=== PATIENT | female | born 1980 | race Caucasian/White ===

== ENCOUNTER 2017-04-04 09:59 | Emergency (ER) | payer SELFPAY ==
[2017-04-04 14:50] VITALS: BP 125/58
--- NOTE | 2017-04-04 15:48 | Diagnostic Imaging Report ---
[facility] [address] [facility] [address] Report Submission Date: Apr 04, 2017 10:57:48 AM CDT Patient Study Name: JOANNA LOPEZ Date: Apr 04, 2017 10:41:46 AM CDT Modality Type: CR Gender: F Description: LOWER EXTREMITY : 80 Institution: [facility] Physician JAYRO COTTON - ER Right knee -three views CLINICAL HISTORY: Pain and swelling. FINDINGS: Examination right knee in AP, lateral and sunrise views fails to demonstrate evidence of fracture, dislocation or other bone or joint pathology. Electronically signed on Apr 04, 2017 10:57:48 AM CDT by: Estiven CONTI
--- NOTE | 2017-04-04 16:16 | ED Physician Documentation ---
Lower Extremity Problem - HISTORIAN Historian: patient - HPI Stated Complaint: right knee pain Chief Complaint: Lower Extremity Problem Additional Information: rt knee locked up sev days ago better but stiff and sore-slight swelling. Location of Injury: R knee Timing: still present, better Duration: intermittent episodes Recent Injury: No Severity: moderate Quality: pain, swelling, tenderness Exacerbated By: walking, other (standing) Relieved By: rest, other (otc meds very slightly) Associated Symptoms: denies: chest pain - ROS CONST: no problems GI/: none EYES/ENT: none NERUO/PSYCH: difficulty walking. denies: headache - PAST HX Past History: none Surgeries/Procedures: other (hip age 6months) Allergies/Adverse Reactions: Allergies Allergy/AdvReac Type Severity Reaction Status Date / Time acetaminophen [From Percocet] Allergy Mild Weakness Verified 04/04/17 10:26 oxycodone HCl [From Percocet] Allergy Mild Weakness Verified 04/04/17 10:26 Home Medications: Ambulatory Orders Medication Instructions Recorded NK [NK] 02/12/15 - SOCIAL HX Smoking History: less than 1 pack/day Alcohol Use: none Drug Use: none - FAMILY HX Family History: no significant history - VITAL SIGNS Vital Signs: Vital Signs Temp Pulse Resp BP Pulse Ox 98.1 F 78 20 125/58 99 04/04/17 09:59 04/04/17 11:48 04/04/17 11:48 04/04/17 11:48 04/04/17 11:48 - REVIEWED ASSESSMENTS Nursing Assessment Reviewed: Yes Vitals Reviewed: Yes ED Results Lab/Radiology - Radiology Radiology Impressions: no fx seen - Orders Orders: ED Orders Category Date Time Status Knee Immobilizer 1T Care 04/04/17 11:18 Active XR KNEE 3 VIEWS [KNEE 3 VIEWS] [RAD] Stat Exams 04/04/17 Completed Lower Extremity Problem - EXAM General Appearance: mild distress Neuro/Tendon: normal sensation (slight swelling and subj tenderness w/palpation) RESPIRATORY: no resp distress, chest non-tender, breath sounds normal CVS: reg rate & rhythm, heart sounds normal JOINT: effusion (possd vewry slight) VASCULAR: no vascular compromise NEURO/PSYCH: oriented X3, motor nml, sensation nml, mood/affect nml SKIN: warm/dry, normal color. No: cyanosis, diaphoresis, jaundice Discharge Clincal Impression: rt knee sprain Referrals: Yolanda Gentile MD [Primary Care Provider] - 2 Days Home Medications: Ambulatory Orders NK [NK] 02/12/15 Comments: avoid standing-home for few days before rtw Condition: Good Disposition: 01 HOME, SELF-CARE Decision to Admit: NO Decision Time: 16:16
== END 2017-04-04 11:56 | disposition home or self-care (01) ==
LOC: ED 09:59
DX: S83.91XA Sprain of unspecified site of right knee, initial encounter (principal); W19.XXXA Unspecified fall, initial encounter; Y93.9 Activity, unspecified; Y99.9 Unspecified external cause status
CPT/HCPCS: 73562; L1830; 99283

== ENCOUNTER 2017-12-17 10:53 | Outpatient (CLI) | payer SELFPAY | END 2017-12-17 10:54 | LOC: LABRHC 10:53 | PROVIDERS: ATTEND Physician Assistant | DX: R30.0 Dysuria (principal) | CPT/HCPCS: 87086 ==

== ENCOUNTER 2018-01-08 10:19 | Outpatient (CLI) | payer SELFPAY ==
--- NOTE | 2018-01-08 18:17 | Diagnostic Imaging Report ---
THEODORE SALAMANCA [facility] [address] [facility] [address] [address] Report Submission Date: Jan 08, 2018 10:51:16 AM CDT Patient Study Name: JOANNA LOPEZ Date: Jan 08, 2018 10:30:07 AM CDT Modality Type: DX Gender: F Description: LOWER EXTREMITY : 80 Institution: [facility] Physician: THEODORE SALAMANCA left Ankle, 3 views. History: PATIENT STATES SHES EXPERIENCING LEFT ANKLE PAIN AND BURNING SENSATION X 3 WEEKS NO PREVIOUS INJURIES OR SURGERIES Findings: The osseous structures are intact without acute fracture. The joint space and alignment are normal. There is no soft tissue swelling. Impression: 1. No acute osseous abnormality. Electronically signed on Jan 08, 2018 10:51:16 AM CDT by: Bennie CONTI
== END 2018-01-08 10:25 ==
LOC: RAD 10:19
PROVIDERS: ATTEND Physician Assistant
DX: M25.572 Pain in left ankle and joints of left foot (principal)
CPT/HCPCS: 73610

== ENCOUNTER 2018-02-16 20:53 | Emergency (ER) | payer SELFPAY ==
--- NOTE | 2018-02-16 21:19 | ED Physician Documentation ---
Lower Extremity Problem - HISTORIAN Historian: patient ( ) - HPI Chief Complaint: Lower Extremity Problem Additional Information: pt told had hairline fx lt ankle 8 weeks ago. has worn walking boot now weaning off boot w/increase pain. xray report was no fx Location of Injury: L ankle Onset: days ago (few days ago) Timing: worse (w/o boot) Severity: mild, moderate (not using cane or crutch) Quality: pain, tenderness. denies: swelling, numbness, tingling Exacerbated By: walking Relieved By: rest (and wearing walking boot) - ROS CONST: no problems MS/SKIN/LYMPH: none CVS/RESP: none GI/: none NERUO/PSYCH: difficulty walking - PAST HX Past History: other (possible dedpression on celexa) Allergies/Adverse Reactions: Allergies Allergy/AdvReac Type Severity Reaction Status Date / Time oxycodone HCl [From Percocet] Allergy Mild Weakness Verified 02/16/18 21:48 - SOCIAL HX Smoking History: greater than 1 pack/day Alcohol Use: none Drug Use: none - FAMILY HX Family History: no significant history - VITAL SIGNS Vital Signs: Vital Signs Temp Pulse Resp BP Pulse Ox 98.2 F 57 L 19 123/44 98 02/16/18 20:53 02/16/18 20:53 02/16/18 20:53 02/16/18 20:53 02/16/18 20:53 - REVIEWED ASSESSMENTS Nursing Assessment Reviewed: Yes Vitals Reviewed: Yes ED Results Lab/Radiology - Lab Results Lab Results: no fracture seen - Orders Orders: ED Orders Category Date Time Status ANKLE 3 VIEWS OR MORE [RAD] Stat Exams 02/16/18 Ordered Lower Extremity Problem - EXAM General Appearance: mild distress (lt ankle lat mallelous) Neuro/Tendon: normal sensation, normal motor functions, normal tendon functions EENT: eye inspection normal RESPIRATORY: no resp distress, chest non-tender, breath sounds normal CVS: reg rate & rhythm, heart sounds normal JOINT: No: nml ROM (pain w/rom lt ankle lat mallelolus) NEURO/PSYCH: oriented X3, motor nml, sensation nml, mood/affect nml SKIN: warm/dry, normal color. No: cyanosis BACK: normal inspection Discharge Clincal Impression: ankle sprain s/p hx fx Referrals: Yolanda Gentile MD [Primary Care Provider] - 2 Days Comments: walk w.cane crutch Condition: Good Disposition: 01 HOME, SELF-CARE Decision to Admit: NO Decision Time: 21:56
[2018-02-16 21:44] VITALS: BP 123/44
--- NOTE | 2018-02-17 07:00 | Diagnostic Imaging Report ---
JAYRO COTTON [facility] [address] [facility].[address] [address] Report Submission Date: Feb 16, 2018 9:38:27 PM CDT Patient Study Name: JOANNA LOPEZ Date: Feb 16, 2018 9:17:42 PM CDT Modality Type: DX Gender: F Description: LOWER EXTREMITY : 80 Institution: [facility] Physician: JAYRO COTTON Left ankle 3-view History: Pain and swelling Findings: A small heel spur is present. The left ankle is intact without fracture, dislocation, arthropathy, or focal bone lesion. Impression: Heel spur. No fracture. Electronically signed on Feb 16, 2018 9:38:27 PM CDT by: Babak CONTI
== END 2018-02-16 21:58 | disposition home or self-care (01) ==
LOC: ED 20:53
DX: M25.572 Pain in left ankle and joints of left foot (principal)
CPT/HCPCS: 73610; 99282

== ENCOUNTER 2018-03-17 20:13 | Emergency (ER) | payer SELFPAY ==
[2018-03-17 20:39] VITALS: BP 124/53
--- NOTE | 2018-03-17 21:18 | ED Physician Documentation ---
Low Back Pain - HISTORIAN Historian: patient - HPI Stated Complaint: Back Pain x 3 Days Chief Complaint: Low Back Pain/ Injury History: back pain Onset: days ago (3) Duration: continues in ED Recent Injury: No Context: denies: lifting, turning, bending, fall, near-fall, trauma Severity: moderate Further Comments: yes (38 year old female patient presents with complaint of low back pain; denies injury or heavy lifting. Denies loss or bowel or bladder. States she took tylenol today with no relief.) - ROS CONST: no problems CVS/RESP: none EYES/ENT: none MS/SKIN/LYMPH: none Neuro/Psych: none GI/: denies: abdominal pain, black stools - PAST HX Past History: other (depression) Allergies/Adverse Reactions: Allergies Allergy/AdvReac Type Severity Reaction Status Date / Time oxycodone HCl [From Percocet] Allergy Mild Weakness Verified 02/16/18 21:48 Home Medications: Ambulatory Orders Medication Instructions Recorded Ketorolac Tromethamine [Toradol] 10 mg PO TID #9 tablet 03/17/18 Sertraline HCl [Sertraline HCl] 50 mg PO DAILY 03/17/18 - SOCIAL HX Smoking History: cigarettes - FAMILY HX Family History: denies: none - VITAL SIGNS Vital Signs: Vital Signs Temp Pulse Resp BP Pulse Ox 97.3 F L 74 18 124/53 98 03/17/18 21:32 03/17/18 21:32 03/17/18 21:32 03/17/18 21:32 03/17/18 21:32 - REVIEWED ASSESSMENTS Nursing Assessment Reviewed: Yes Vitals Reviewed: Yes ED Results Lab/Radiology - Orders Orders: ED Orders Category Date Time Status Ketorolac Tromethamine [Toradol] Med 03/17/18 21:15 Discontinued 30 mg IVP NOW ONE Ketorolac Tromethamine [Toradol] Med 03/17/18 21:19 Discontinued 60 mg .ROUTE .STK-MED ONE Ketorolac Tromethamine [Toradol] Med 03/17/18 21:19 Discontinued 60 mg IM NOW ONE Orphenadrine Citrate [Norflex] Med 03/17/18 21:15 Discontinued 60 mg IM NOW ONE Low Back Pain/Injury - Physical Exam General Appearance: mild distress EENT: eye inspection normal, PRATIMA Resp/CVS: chest non-tender, breath sounds nml, heart sounds nml, no resp. distress, lungs clear, reg. rate & rhythm Abdomen: non-tender, no organomegaly, no pulsatile mass Back: non-tender, other (no midline lumbar tenderness noted; no CVA tenderness; tenderness in bilateral lumbar paraspinous muscles. ). No: vertebral point- tendernes, CVA tenderness Straight Leg Raising: Negative Left, Negative Right Neuro/Psych: oriented x3, motor nml, sensation nml, bilat. doriflexion nml, reflexes nml, mood/affect nml Skin: normal color, warm/dry, NR, INT, PAL, DR Extremities: non-tender, normal range of motion, no evidence of injury, no edema , J, REGISTERED DENTAL ASSISTANT RDA Discharge Clincal Impression: Low back pain Qualifiers: Chronicity: acute Back pain laterality: bilateral Sciatica presence: without sciatica Qualified Code(s): M54.5 - Low back pain Prescriptions: Ketorolac Tromethamine [Toradol] 10 mg PO TID #9 tablet Referrals: Yolanda Gentile MD [Primary Care Provider] - 2 Days Additional Instructions: Ice Rest Elevation If you are unable to bear weight and continuing to have significant pain on day 3-4; see your PCP for re-evaluation and additional xrays. You may use Tylenol every 4hour as needed for pain. Limit your dose to less than 4 G per day. You may want to try massage, over the counter lidocaine patches, biofreeze, rosendo rodgers or aspercream . Condition: Stable Disposition: 01 HOME, SELF-CARE Decision to Admit: NO Decision Time: 21:18
[2018-03-17] MEDS: KETOROLAC TROMETHAMINE 60 MG/2 ML VIAL IM ONE (21:24)
[2018-03-17] MEDS: ORPHENADRINE CITRATE 60 MG/2ML IM ONE (21:24)
[2018-03-17] MEDS: KETOROLAC TROMETHAMINE 30 MG/1ML VIAL IVP ONE (21:25)
[2018-03-17] MEDS: KETOROLAC TROMETHAMINE 60 MG/2 ML VIAL ONE (21:25)
== END 2018-03-17 21:32 | disposition home or self-care (01) ==
LOC: ED 20:13
DX: M54.5 Low back pain (principal)
CPT/HCPCS: J1885; J2360; 96372; 99284

== ENCOUNTER 2018-08-07 19:27 | Emergency (ER) | payer SELFPAY ==
--- NOTE | 2018-08-07 20:21 | ED Physician Documentation ---
General Adult - HISTORIAN Historian: patient - HPI Stated Complaint: Right side upper chest/shoulder pain Chief Complaint: Chest Pain Onset: days ago (7) Timing: still present, worse Severity: moderate Further Comments: yes (She reports chest pain after being treated for bronchitis last week and she did feel better and then yesterday she notes that she started to have increased cough, congestion and fatigue. Today at work chest pain on right side from the cough. She states that she has no nausea or diaphoresis. No fever. She did compelte antibitoics and steriods.) Last known Well Code/Unknown Code: Unknown - ROS CONST: recent illness - PAST HX Past History: other (depression ) Immunizations: UTD Allergies/Adverse Reactions: Allergies Allergy/AdvReac Type Severity Reaction Status Date / Time oxycodone HCl [From Percocet] Allergy Mild Fainting Verified 08/07/18 19:55 - SOCIAL HX Smoking History: quit less than 1 year Alcohol Use: none Drug Use: none - FAMILY HX Family History: No - VITAL SIGNS Vital Signs: Vital Signs Temp Pulse Resp BP Pulse Ox 98.4 F 70 18 119/56 97 08/07/18 19:30 08/07/18 19:30 08/07/18 19:30 08/07/18 19:30 08/07/18 19:30 - REVIEWED ASSESSMENTS Nursing Assessment Reviewed: Yes Vitals Reviewed: Yes Progress - Progress Progress: 2129: States she feels her chest congestion is breaking up. Pain is improved DG 2229: Feeling improved per her report. She is agreeable to plan DG ED Results Lab/Radiology - Radiology Radiology Impressions: Chest two views History: Cough and right upper chest pain. Quit smoking 3 weeks ago Findings: The lungs are hyperinflated without acute infiltrate or pleural effusion. Heart size and pulmonary vascularity are normal. Osseous structures are intact. Impression: Hyperinflation. This does not exclude bronchitis. Electronically signed on Aug 07, 2018 9:07:44 PM CDT by: Babak Dave - Orders Orders: ED Orders Category Date Time Status Continuous EKG monitoring Q30M Care 08/07/18 20:16 Active Continuous Pulse Oximetry Q30M Care 08/07/18 20:[address] IV Lock 1T Care 08/07/18 20:16 Active CHEST 2VIEW [RAD] Stat Exams 08/07/18 20:16 Ordered BNP [NT-proBNP] Stat Lab 08/07/18 Ordered CBC/PLATELET/DIFF Routine Lab 08/07/18 20:16 Ordered CMP Routine Lab 08/07/18 20:16 Ordered D DIMER Stat Lab 08/07/18 Ordered UA W/MICRO IF INDICATED Routine Lab 08/07/18 20:19 Ordered EKG WITH COMPARISON Stat Ther 08/07/18 20:16 Ordered General Adult Physical Exam - PHYSICAL EXAM GENERAL APPEARANCE: no distress EENT: eye inspection normal, ENT inspection normal, pharynx normal, no signs of dehydration NECK: normal inspection RESPIRATORY: wheezes, rhonchi, other (chest on right side is tender to touch ) CVS: reg rate & rhythm, heart sounds normal, equal pulses, no murmur ABDOMEN: soft, no distension BACK: normal inspection, no CVA tenderness SKIN: warm/dry, normal color EXTREMITIES: non-tender, normal range of motion, no evidence of injury, no edema NEURO: oriented X3, CN's nml as tested, motor nml, sensation nml, mood/affect nml, cognition normal Discharge Clincal Impression: Bronchitis Referrals: Yolanda Gentile MD [Primary Care Provider] - 2 Days Additional Instructions: 1. Medrol dose pack as directed start 08.08.2018 at noon 2. ProAir 90 mcg take 1 puff every 4 hours as needed for cough 3. increase fluids 4. Tylenol or Ibuprofen as directed for pain 5. Follow up with PCP in 2-4 days 6. Return to ER for concerns Condition: Stable Disposition: 01 HOME, SELF-CARE Decision to Admit: NO Date of Decison to Admit: 08/07/18 Decision Time: 22:38
[2018-08-07 20:29] LABS: MEAN CORPUSCULAR HEMOGLOBIN 29.2 pg (28.0-34.0)
[2018-08-07 20:30] LABS: BASOPHILS % 0.7 (0.0-1.5); EOSINOPHILS % 1.9 % (0.0-6.8); MONOCYTES % 7.1 % (0.0-11.0); NEUTROPHILS # 6.4 # k/uL (1.4-7.7)
[2018-08-07 20:49] LABS: eGFR (Non-African) > 60
[2018-08-07] MEDS ORDERED: LEVALBUTEROL HCL 1.25 MG/3 ML AMPUL.NEB NEB ONE (20:59)
[2018-08-07] MEDS ORDERED: methylPREDNISolone SOD SUCC 125 MG/2 ML VIAL IVP ONE (21:10)
--- NOTE | 2018-08-07 21:53 | Diagnostic Imaging Report ---
NAHOMY EMMANUEL [facility] [address] [facility] [address], [place]. [address] Report Submission Date: Aug 07, 2018 9:07:44 PM CDT Patient Study Name: JOANNA LOPEZ Date: Aug 07, 2018 8:34:20 PM CDT Modality Type: DX Gender: F Description: CHEST : 80 Institution: [facility] Physician: NAHOMY EMMANUEL Chest two views History: Cough and right upper chest pain. Quit smoking 3 weeks ago Findings: The lungs are hyperinflated without acute infiltrate or pleural effusion. Heart size and pulmonary vascularity are normal. Osseous structures are intact. Impression: Hyperinflation. This does not exclude bronchitis. Electronically signed on Aug 07, 2018 9:07:44 PM CDT by: Babak CONTI
[2018-08-07] MEDS ORDERED: IPRATROPIUM/ALBUTEROL SULFATE 3 ML AMPUL.NEB NEB ONE (22:23)
[2018-08-07 23:03] VITALS: BP 129/61
[2018-08-08 10:48] LABS: APPEARANCE,URINE CLEAR (CLEAR); COLOR,URINE YELLOW (YELLOW); OCCULT BLOOD,URINE NEGATIVE (NEGATIVE); PH URINE 5.5 (5.0 - 8.0); URINE HCG NEGATIVE (NEGATIVE); UROBILINOGEN URINE 0.2 Eu (0.2-1.0)
== END 2018-08-07 23:00 | disposition home or self-care (01) ==
LOC: ED 19:27
DX: J40 Bronchitis, not specified as acute or chronic (principal); R07.9 Chest pain, unspecified
CPT/HCPCS: 71046; 80053; 81002; 81025; 83880; 85025; 85379; 87086; 93005; J2930; J7614; 94640; 96374; 99284; S1016

== ENCOUNTER 2018-10-24 20:36 | Emergency (ER) | payer SELFPAY ==
--- NOTE | 2018-10-24 20:46 | ED Physician Documentation ---
General Adult - HISTORIAN Historian: patient - HPI Stated Complaint: right shoulder pain x 2 days no injury Chief Complaint: Shoulder Injury/ Pain Onset: days ago (2) Timing: still present Severity: mild Further Comments: yes (She denies any injury she has right shoulder pain x 2 days. She has no decreased rom although pain to top of shoulder that is dull and sharp at times. She can move her arm but it hurts when she lifts her arm. She has no loss of sensation. She denies any injury. She states at work she lifts boxes above her head a lot and this is hard and painful) - ROS CONST: no problems - PAST HX Past History: none Other History: none Immunizations: UTD Allergies/Adverse Reactions: Allergies Allergy/AdvReac Type Severity Reaction Status Date / Time oxycodone HCl [From Percocet] Allergy Mild Fainting Verified 10/24/18 20:56 - SOCIAL HX Smoking History: non-smoker Alcohol Use: none Drug Use: none - FAMILY HX Family History: No - VITAL SIGNS Vital Signs: Vital Signs Temp Pulse Resp BP Pulse Ox 129/61 08/07/18 23:00 - REVIEWED ASSESSMENTS Nursing Assessment Reviewed: Yes Vitals Reviewed: Yes Progress - Progress Progress: 2159: Discussed results and plan. She is agreeable DG ED Results Lab/Radiology - Radiology Radiology Impressions: HISTORY: 38-year-old female with right shoulder pain for 2 days, no known injury. COMPARISON: None available. TECHNIQUE: 3 views of the right shoulder were performed. FINDINGS: No acute fracture or dislocation about the right shoulder. No significant degenerative changes or loss of subacromial space. IMPRESSION: Unremarkable radiographs of the right shoulder. Electronically signed on Oct 24, 2018 9:59:09 PM ASSAYER HELPER by: Josep Morejon General Adult Physical Exam - PHYSICAL EXAM GENERAL APPEARANCE: no distress EENT: eye inspection normal, no signs of dehydration NECK: normal inspection RESPIRATORY: no resp distress, chest non-tender, breath sounds normal CVS: reg rate & rhythm, heart sounds normal, no murmur ABDOMEN: soft BACK: normal inspection SKIN: warm/dry, normal color EXTREMITIES: non-tender, normal range of motion, other (decreased ROM on right shoulder. Pulses + , Sensation + , No obvious injury, Cap refill +) NEURO: oriented X3 Discharge Clincal Impression: Right shoulder pain Qualifiers: Chronicity: acute Qualified Code(s): M25.511 - Pain in right shoulder Referrals: Yolanda Gentile MD [STAFF PHYSICIAN] - 2 Days Comments: 1. OTC meds as directed for pain 2. Ice or heat for comfort 3. Follow up with PCP in 2-4 days 4. Return to ER for any concerns Condition: Stable Disposition: 01 HOME, SELF-CARE Decision to Admit: NO Date of Decison to Admit: 10/24/18 Decision Time: 22:00
[2018-10-24 20:57] VITALS: BP 140/63
--- NOTE | 2018-10-25 03:14 | Diagnostic Imaging Report ---
NAHOMY EMMANUEL [facility] [address] [facility] [address] [address] Report Submission Date: Oct 24, 2018 9:59:09 PM [employer] Patient Study Name: JOANNA LOPEZ Date: Oct 24, 2018 9:30:07 PM [employer] Modality Type: DX Gender: F Description: SHOULDER : 80 Institution: [facility] Physician: NAHOMY EMMANUEL HISTORY: 38-year-old female with right shoulder pain for 2 days, no known injury. COMPARISON: None available. TECHNIQUE: 3 views of the right shoulder were performed. FINDINGS: No acute fracture or dislocation about the right shoulder. No significant degenerative changes or loss of subacromial space. IMPRESSION: Unremarkable radiographs of the right shoulder. Electronically signed on Oct 24, 2018 9:59:09 PM [employer] by: Josep CONTI
== END 2018-10-24 22:20 | disposition home or self-care (01) ==
LOC: ED 20:36
DX: M25.511 Pain in right shoulder (principal)
CPT/HCPCS: 73030; 81025; 99282; 99283

== ENCOUNTER 2019-01-29 11:36 | Emergency (ER) | payer SELFPAY ==
--- NOTE | 2019-01-29 11:50 | ED Physician Documentation ---
Eye Problem - HISTORIAN Historian: patient - HPI Stated Complaint: eye discharge and itching Chief Complaint: Eye Problems Onset: days ago (2) Associated symptoms: itching, redness, matting, eyelid swelling. denies: pain, burining, sensitivity to light, foreign body, decreased vision, blurred vision, double vision Location: both eyes Severity: mild Apparent Injury: no Context: pink eye. denies: foreign body, direct trauma, projectile injury, penetration injury, chemical exposure, exposure to welding arc, tanning booths, wearing glasses, contact lenses Where: home Further Comments: yes (Eye matting and itching x 2 days. She states the eyes were both matted shut and she has had itching. She denies any fever. No injury. She does note allergy symptoms and she is taking OTC meds with good relief.) - ROS CONST: no problems - PAST HX Past History: none Allergies/Adverse Reactions: Allergies Allergy/AdvReac Type Severity Reaction Status Date / Time oxycodone HCl [From Percocet] Allergy Mild Fainting Verified 01/29/19 11:54 - SOCIAL HX Smoking History: cigarettes Alcohol Use: none Drug Use: none - FAMILY HX Family History: none - VITAL SIGNS Vital Signs: Vital Signs Temp Pulse Resp BP Pulse Ox 140/63 10/24/18 22:18 - REVIEWED ASSESSMENTS Nursing Assessment Reviewed: Yes Vitals Reviewed: Yes Eye Problem Physical Exam - Physical Exam General Appearance: no acute distress, alert Visual Acuity: see nursing assessment Eyelids: edema (R). No: edema (L) Conjunctiva and Sclera: other (right eye with redness with conjunctiva ) Corneas: nml inspection EOM: intact Pupils: equal Head/ENT: nml inspection Skin: nml color Neck/Back: nml inspection Respiratory: no resp distress CVS: reg rate & rhythm, heart sounds normal, equal pulses, no murmur Abdomen: non-tender Neuro/Psych: oriented x3 Discharge Clincal Impression: Conjunctivitis Qualifiers: Conjunctivitis type: unspecified Laterality: bilateral Qualified Code(s): H10.9 - Unspecified conjunctivitis Referrals: Primary Doctor,No [Primary Care Provider] - 2 Days Comments: 1. Gentamycin 0.3% use 1 drop in each eye three times per day x 7 days 2. Do not touch dropper to eye lid 3. Wash hands directly after touching the eye 4. Continue OTC meds for allergy symptoms 5. See PCP in 2-4 days 6. Return to ER for any increasing concerns Condition: Stable Disposition: 01 HOME, SELF-CARE Decision to Admit: NO Date of Decison to Admit: 01/29/19 Decision Time: 11:56
[2019-01-29 11:53] VITALS: BP 120/55
== END 2019-01-29 11:58 | disposition home or self-care (01) ==
LOC: ED 11:36
DX: H10.9 Unspecified conjunctivitis (principal); Z72.0 Tobacco use
CPT/HCPCS: 99282; 99283

== ENCOUNTER 2019-09-15 12:16 | Emergency (ER) | payer SELFPAY ==
[2019-09-15 12:43] VITALS: BP 110/57
--- NOTE | 2019-09-15 12:47 | ED Physician Documentation ---
Abdominal Pain - HISTORIAN Historian: patient - HPI Chief Complaint: Female Urogenital Problems Additonal Information: 39 year old female presents with heavy menses that started 4 days ago; she has been soaking numerous pads; it lightened up 3 days ago but then started again; states that she has soaked 3-4 pads since 8:30 this morning. She states that she is having "right ovarian pain". Onset: days ago Duration: waxing, waning Timing: still present Context: denies: out of country travel, bad food Severity: mild Quality: aching Associated Symptoms: none Exacerbated by: nothing Relieved by: upright position - ROS CONST: no problems GI/: none CVS/RESP: none EYES/ENT: none MS/SKIN/LYMPH: none NEURO/PSYCH: none - SOCIAL HX Smoking History: quit less than 1 year Alcohol Use: none Drug Use: none - FAMILY HX Family History: none - PAST HX Past History: other (anxiety and depression) Ischemic Bowel Risk Factors: none Other History: none Surgeries/Procedures: other (hip surgery at 6mths old) Immunizations: UTD Allergies/Adverse Reactions: Allergies Allergy/AdvReac Type Severity Reaction Status Date / Time oxycodone HCl [From Percocet] Allergy Mild Fainting Verified 09/15/19 12:29 - VITAL SIGNS Vital Signs: Vital Signs Temp Pulse Resp BP Pulse Ox 97.7 F 65 14 110/57 99 09/15/19 12:20 09/15/19 14:14 09/15/19 14:14 09/15/19 14:14 09/15/19 14:14 - REVIEWED ASSESSMENTS Nursing Assessment Reviewed: Yes Vitals Reviewed: Yes ED Results Lab/Radiology - Lab Results Lab Results: Lab Results 09/15/19 09/15/19 12:32 12:32 WBC 6.50 K/ul K/ul (4.00-12.00) RBC 4.43 M/ul M/ul (3.90-5.20) Hgb 13.3 g/dL g/dL (11.5-16.0) Hct 39.4 % % (34.5-46.5) MCV 89.0 fl fl (80.0-100.0) MCH 30.1 pg pg (28.0-34.0) MCHC 33.8 g/dL g/dL (30.0-36.0) RDW 11.0 % L % (11.3-14.3) Plt Count 217 K/mm3 K/mm3 (130-400) Neut % (Auto) 59.1 % % (39.0-79.0) Lymph % (Auto) 31.1 % % (16.0-50.0) [place] % (Auto) 6.6 % % (0.0-11.0) Eos % (Auto) 2.8 % % (0.0-6.8) Baso % (Auto) 0.4 % % (0.0-1.5) Neut # (Auto) 3.9 # k/uL # k/uL (1.4-7.7) Lymph # (Auto) 2.0 # k/uL # k/uL (0.6-4.0) [place] # (Auto) 0.4 # k/uL # k/uL (0.0-0.9) Eos # (Auto) 0.2 # k/uL # k/uL (0.0-0.6) Baso # (Auto) 0.0 # k/uL # k/uL (0.0-0.5) Seg Neutrophils % 53 % % (39-79) Lymphocytes % 37 % % (16-50) Monocytes % 4 % % (0-11) Eosinophils % 6 % % (0-7) Plt Morphology Comment Normal (NORMAL) RBC Morph Comment Normal (NORMAL) Sodium 141 mmol/L mmol/L (137-145) Potassium 3.9 mmol/L mmol/L (3.5-5.1) Chloride 108 mmol/L H mmol/L (98-107) Carbon Dioxide 25 mmol/L mmol/L (22-30) Anion Gap 11.9 BUN 12 mg/dL mg/dL (7-17) Creatinine 0.55 mg/dL mg/dL (0.52-1.04) Estimated Creat Clear 229 Est GFR ( Amer) > 60 (60 - ) Est GFR (Non-Af Amer) > 60 (60 - ) Glucose 98 mg/dL mg/dL (74-106) Calcium 9.2 mg/dL mg/dL (8.4-10.2) Total Bilirubin 0.3 mg/dL mg/dL (0.2-1.3) AST 18 U/L U/L (15-46) ALT 12 U/L U/L (0-35) Alkaline Phosphatase 79 U/L U/L (38-126) Total Protein 6.9 g/dL g/dL (6.3-8.2) Albumin 3.9 g/dL g/dL (3.5-5.0) - Radiology Radiology Impressions: Endovaginal pelvic ultrasound History: Heavy uterine bleeding Transverse and longitudinal images were obtained through the pelvis endovaginally The uterus measures 7.9 x 4.8 x 5.9 cm in greatest dimension. The endometrium measures 2 mm in thickness. There is a small amount of fluid in the endometrium. The myometrium is unremarkable. The left ovary measures 2.7 x 2.0 x 2.0 cm in greatest dimension. There is normal flow to the left ovary and there is a small follicle of the left ovary. The right ovary is not seen. Impression: The endometrium is normal in thickness. There is a small amount of fluid within the endometrium. Normal left ovary with a small follicle. Nonvisualization of the right ovary. Electronically signed on Sep 15, 2019 1:54:41 PM [employer] by: Batsheva Kinsey - Orders Orders: ED Orders Category Date Time Status PELVIC TRANSABD ULTRASOUND [US TRANSABDOMINAL PELVIS] [ Exams 09/15/19 Completed US] Stat CBC/PLATELET/DIFF Routine Lab 09/15/19 12:32 Completed CMP Routine Lab 09/15/19 12:32 Completed Abdominal Pain Physical Exam - Physical Exam General Appearance: no acute distress, alert EENT: eye inspection normal, ENT inspection normal, pharynx normal, no signs of dehydration, PRATIAM NECK: normal inspection RESPIRATORY: no resp distress, chest non-tender, breath sounds normal CVS: heart sounds normal, equal pulses ABDOMEN: soft, normal bowel sounds BACK: normal inspection SKIN: warm/dry, normal color EXTREMITIES: non-tender, normal range of motion NEURO: oriented X3, motor nml, sensation nml, mood/affect nml, cognition normal Vital Signs: Vital Signs Temp Pulse Resp BP Pulse Ox 97.7 F 65 14 110/57 99 09/15/19 12:20 09/15/19 14:14 09/15/19 14:14 09/15/19 14:14 09/15/19 14:14 Discharge Clincal Impression: Dysmenorrhea Referrals: Primary Doctor,No [Primary Care Provider] - 2 Days Additional Instructions: Take Ibuprofen 800mg by mouth every 8 hours for 24 hours and then 2 days prior t o next menses start Ibuprofen Use heating pad Drink 64 oz of water daily Follow up with PCP as needed Condition: Good Disposition: 01 HOME, SELF-CARE Decision to Admit: NO Decision Time: 14:22
[2019-09-15 13:24] LABS: eGFR (Non-African) > 60
[2019-09-15 13:28] LABS: BASOPHILS % 0.4 % (0.0-1.5); NEUTROPHILS # 3.9 # k/uL (1.4-7.7)
[2019-09-15 13:29] LABS: SEGMENTED NEUTROPHILS % 53 % (39-79)
--- NOTE | 2019-09-15 13:59 | Diagnostic Imaging Report ---
PATIENT MR#: [id number] PATIENT PATIENT NAME: JOANNA LOPEZ DATE OF : 1980 REFERRING PHYSICIAN: Karla Last EXAM DATE: 09/15/2019 ACCESSION NUMBER: [id number] EXAM DESCRIPTION: US TRANSABDOMINAL PELVIS Endovaginal pelvic ultrasound History: Heavy uterine bleeding Transverse and longitudinal images were obtained through the pelvis endovaginally The uterus measures 7.9 x 4.8 x 5.9 cm in greatest dimension. The endometrium measures 2 mm in thick ness. There is a small amount of fluid in the endometrium. The myometrium is unremarkable. The left ovary measures 2 .7 x 2.0 x 2.0 cm in greatest dimension. There is normal flow to the left ovary and there is a small follicle of the l eft ovary. The right ovary is not seen. Impression: The endometrium is normal in thickness. There is a small amount of fluid within the endometrium. Normal left ovary with a small follicle. Nonvisualization of the right ovary. Read by: Dr. Batsheva Kinsey Transcribed by: Transcribed Date: Electronically signed by: Dr. Batsheva Kinsey Date signed: 09/15/2019 1:58:35 PM
== END 2019-09-15 14:10 | disposition home or self-care (01) ==
LOC: ED 12:16
DX: N94.6 Dysmenorrhea, unspecified (principal)
CPT/HCPCS: 76856; 80053; 85025; 99282